=== PATIENT | female | born 1990 | race Two or more races ===

== ENCOUNTER 2017-11-24 13:02 | Emergency (ER) | payer MEDICAID ==
[~2017-11-24] VITALS: Ht 152.4 cm; Wt 68.0 kg
[2017-11-24] MEDS ORDERED: SODIUM CHLORIDE 0.9% 1,000 ML IV ONE (13:56)
[2017-11-24] MEDS ORDERED: KETOROLAC TROMETH 30 MG/ML 1ML VIAL IV ONE (14:00)
[2017-11-24] MEDS ORDERED: METOCLOPRAMIDE HCL 5MG/ml INJ 2ml VIAL IV ONE (14:00)
[2017-11-24 14:52] LABS: Basophils # (auto) 0 uL; Basophils % (auto) 0.2 % (0.0-2.0); Eosinophils # (auto) 0.1 uL; Eosinophils % (auto) 0.8 % (0.0-7.0); Hemoglobin 12.7 g/dL (12.2-16.2); Lymphocytes # (auto) 2.3 uL; Lymphocytes % (auto) 18.4 % (10.0-50.0); Mean Corpuscular Hgb Conc. 33.4 g/dL (32.0-36.0); Mean Corpuscular Volume 86.9 fL (80.0-100.0); Monocytes # (auto) 0.5 uL; Monocytes % (auto) 4.1 % (0.0-12.0); Neutrophils # (auto) 9.6 uL; Neutrophils % (auto) 76.5 % (37.0-80.0); Platelet Count (auto) 333 10^3/uL (140-450); Red Blood Cells 4.37 10^6/uL (4.0-5.20); White Blood Cell 12.6 10^3/uL (4.4-10.8)
[2017-11-24 15:15] LABS: Albumin 3.6 g/dL (3.4-5.0); BUN/Creatinine Ratio 16.9; Bilirubin, Total 0.6 mg/dL (0.2-1.0); Potassium 3.8 mmol/L (3.5-5.1); Total Protein 7.8 g/dL (6.4-8.2)
[2017-11-24 15:40] LABS: Urine Bacteria FEW /hpf (None Seen); Urine Blood Negative /uL (Negative); Urine Mucus FEW (None Seen); Urine Specific Gravity 1.019 (1.001-1.035); Urine WBC 4 /hpf (0 - 5)
[2017-11-24 18:35] VITALS: BP 113/71
== END 2017-11-24 18:42 | disposition home or self-care (01) ==
LOC: ER 13:06
DX: R10.11 Right upper quadrant pain (principal); K76.0 Fatty (change of) liver, not elsewhere classified; Z90.49 Acquired absence of other specified parts of digestive tract
CPT/HCPCS: 36415; 76705; 80053; 81001; 81025; 82150; 83690; 83735; 85025; 96374; 96375; 99285; J1885; J2765; J7030

== ENCOUNTER 2018-04-19 05:29 | Emergency (ER) | payer MEDICAID ==
[~2018-04-19] VITALS: Ht 152.4 cm; Wt 68.0 kg
[2018-04-19 05:39] VITALS: BP 123/72
[2018-04-19] MEDS ORDERED: cefTRIAXone SOD 1,000 MG VL IM ONE (06:45)
== END 2018-04-19 07:55 | disposition home or self-care (01) ==
LOC: ER 05:29
DX: J03.90 Acute tonsillitis, unspecified (principal); Z90.49 Acquired absence of other specified parts of digestive tract
CPT/HCPCS: 96372; 99283; J0696

== ENCOUNTER 2018-06-22 08:46 | Emergency (ER) | payer MEDICAID ==
[~2018-06-22] VITALS: Ht 152.4 cm; Wt 72.6 kg
[2018-06-22 09:20] LABS: Urine Bacteria NONE SEEN /hpf (None Seen); Urine Blood 1+ /uL (Negative); Urine Mucus FEW (None Seen); Urine WBC 1 /hpf (0 - 5)
[2018-06-22 09:23] LABS: Eosinophils # (auto) 0.2 uL; Lymphocytes # (auto) 2.1 uL; Monocytes # (auto) 0.6 uL; Monocytes % (auto) 5.8 % (0.0-12.0)
[2018-06-22 09:25] LABS: Basophils # (auto) 0.1 uL; Basophils % (auto) 0.5 % (0.0-2.0); Eosinophils % (auto) 1.5 % (0.0-7.0); Hematocrit 35.1 % (36.0-46.0); Lymphocytes % (auto) 19.3 % (10.0-50.0); Mean Corpuscular Hemoglobin 22.7 pg (28.0-32.0); Mean Corpuscular Hgb Conc. 31.3 g/dL (32.0-36.0); Mean Corpuscular Volume 72.5 fL (80.0-100.0); Neutrophils % (auto) 72.9 % (37.0-80.0); Nucleated Red Blood Cells % 0.1 %; Platelet Count (auto) 372 10^3/uL (140-450); Red Blood Cells 4.85 10^6/uL (4.0-5.20); Red Cell Distribution Width 17.9 % (11.8-14.3)
[2018-06-22 09:32] LABS: Albumin 3.7 g/dL (3.4-5.0); Calcium 8.8 mg/dL (8.5-10.1); Potassium 3.6 mmol/L (3.5-5.1)
[2018-06-22 09:36] LABS: BUN/Creatinine Ratio 15.6; Bilirubin, Total 0.4 mg/dL (0.2-1.0); Total Protein 7.7 g/dL (6.4-8.2)
[2018-06-22] MEDS ORDERED: SODIUM CHLORIDE 0.9% 1,000 ML IV ONE ×2 (11:34)
[2018-06-22] MEDS ORDERED: TAMSULOSIN HYDROCHLORIDE 0.4 MG CAP PO ONE (11:45)
[2018-06-22] MEDS ORDERED: KETOROLAC TROMETH 30 MG/ML 1ML VIAL IV ONE (11:45)
[2018-06-22 13:13] VITALS: BP 117/73
== END 2018-06-22 14:39 | disposition home or self-care (01) ==
LOC: ER 08:46
DX: N20.0 Calculus of kidney (principal); Z90.49 Acquired absence of other specified parts of digestive tract
CPT/HCPCS: 36415; 74176; 80053; 81001; 85025; 96374; 99284; J1885; J7030

== ENCOUNTER 2019-05-24 19:48 | Emergency (ER) | payer MEDICAID ==
[~2019-05-24] VITALS: Ht 152.4 cm; Wt 76.2 kg
[2019-05-24] MEDS ORDERED: SODIUM CHLORIDE 0.9% 2,000 ML IV ONE (21:00)
[2019-05-24 21:07] LABS: Urine Bacteria NONE SEEN /hpf (None Seen); Urine Blood 1+ /uL (Negative); Urine Specific Gravity 1.018 (1.001-1.035); Urine WBC 1 /hpf (0 - 5)
[2019-05-24 21:12] LABS: Basophils # (auto) 0 10 ^3/uL (0-0.2); Basophils % (auto) 0.5 % (0.0-2.0); Lymphocytes # (auto) 2.2 10 ^3/uL (0.4-5.4)
[2019-05-24 21:14] LABS: Eosinophils # (auto) 0.3 10 ^3/uL (0-0.8); Hemoglobin 10.5 g/dL (12.2-16.2); Lymphocytes % (auto) 33.1 % (10.0-50.0); Mean Corpuscular Hemoglobin 25.7 pg (28.0-32.0); Mean Corpuscular Hgb Conc. 32.8 g/dL (32.0-36.0); Mean Corpuscular Volume 78.5 fL (80.0-100.0); Monocytes # (auto) 0.5 10 ^3/uL (0-1.3); Monocytes % (auto) 8.4 % (0.0-12.0); Neutrophils # (auto) 3.5 10 ^3/uL (1.6-8.6); Platelet Count (auto) 289 10^3/uL (140-450); Red Blood Cells 4.08 10^6/uL (4.0-5.20); Red Cell Distribution Width 15.8 % (11.8-14.3); White Blood Cell 6.5 10^3/uL (4.4-10.8)
[2019-05-24 21:26] LABS: Amylase 39 U/L (25-115); Lipase 83 U/L (73-393)
[2019-05-24 21:28] LABS: Albumin 3.5 g/dL (3.4-5.0); Calcium 8.8 mg/dL (8.5-10.1); Potassium 3.6 mmol/L (3.5-5.1)
[2019-05-24 21:33] LABS: BUN/Creatinine Ratio 19.1; Bilirubin, Total 0.3 mg/dL (0.2-1.0); Total Protein 7.5 g/dL (6.4-8.2)
[2019-05-24] MEDS ORDERED: cefTRIAXone 1GM/50ML D5W 50 ML IV ONE (21:45)
[2019-05-24] MEDS ORDERED: metroNIDAZOLE 500MG/100ML 100 ML IV ONE (21:45)
[2019-05-24 23:43] VITALS: BP 127/82
== END 2019-05-24 23:58 | disposition home or self-care (01) ==
LOC: ER 19:52
DX: K52.9 Noninfective gastroenteritis and colitis, unspecified (principal); N20.0 Calculus of kidney; R59.1 Generalized enlarged lymph nodes; Z90.49 Acquired absence of other specified parts of digestive tract
CPT/HCPCS: 36415; 74176; 80053; 81001; 81025; 82150; 83690; 85025; 96361; 96365; 96367; 99284; J0696; J3490; J7030

== ENCOUNTER 2019-10-31 16:15 | Emergency (ER) | payer MEDICAID ==
[~2019-10-31] VITALS: Ht 154.9 cm; Wt 73.5 kg
[2019-10-31] MEDS ORDERED: KETOROLAC TROMETH 30 MG/ML 1ML VIAL IV ONE (16:30)
[2019-10-31] MEDS ORDERED: SODIUM CHLORIDE 0.9% 1,000 ML IV ONE ×2 (16:30→19:00)
[2019-10-31 17:26] LABS: Basophils # (auto) 0 10 ^3/uL (0-0.2); Eosinophils # (auto) 0.1 10 ^3/uL (0-0.8); Hemoglobin 10.6 g/dL (12.2-16.2); Monocytes # (auto) 0.4 10 ^3/uL (0-1.3)
[2019-10-31 17:27] LABS: Basophils % (auto) 0.4 % (0.0-2.0); Eosinophils % (auto) 1.3 % (0.0-7.0); Lymphocytes # (auto) 1.4 10 ^3/uL (0.4-5.4); Lymphocytes % (auto) 14.2 % (10.0-50.0); Mean Corpuscular Hemoglobin 23.7 pg (28.0-32.0); Mean Corpuscular Hgb Conc. 31.3 g/dL (32.0-36.0); Mean Corpuscular Volume 75.7 fL (80.0-100.0); Monocytes % (auto) 3.8 % (0.0-12.0); Neutrophils % (auto) 80.3 % (37.0-80.0); Platelet Count (auto) 341 10^3/uL (140-450); Red Blood Cells 4.49 10^6/uL (4.0-5.20); Red Cell Distribution Width 16.9 % (11.8-14.3); White Blood Cell 9.9 10^3/uL (4.4-10.8)
[2019-10-31 17:46] LABS: Albumin 3.2 g/dL (3.4-5.0); BUN/Creatinine Ratio 23.2; Calcium 8.1 mg/dL (8.5-10.1); Potassium 3.8 mmol/L (3.5-5.1)
[2019-10-31 17:48] LABS: Bilirubin, Total 0.4 mg/dL (0.2-1.0); Total Protein 7.3 g/dL (6.4-8.2)
[2019-10-31 18:05] LABS: Urine WBC None Seen /hpf (0 - 5)
[2019-10-31 18:20] LABS: Urine Bacteria NONE SEEN /hpf (None Seen); Urine Blood 2+ /uL (Negative); Urine Hyaline Cast FEW /lpf (0 - 2); Urine Mucus FEW (None Seen); Urine Specific Gravity 1.025 (1.001-1.035)
[2019-10-31 18:29] LABS: Alcohol, Urine < 3.0 mg/dL (0-10); Amphetamine Screen, Urine NEGATIVE (NEGATIVE); Barbiturate Scree,Urine NEGATIVE (NEGATIVE); Benzodiazephine Screen, Urine NEGATIVE (NEGATIVE); Cannabinoid Screen, Urine NEGATIVE (NEGATIVE); Cocaine Screen, Urine NEGATIVE (NEGATIVE); Opiate Scree,Urine NEGATIVE (NEGATIVE); Phencyclidine Screen, Urine NEGATIVE (NEGATIVE)
[2019-10-31] MEDS ORDERED: PANTOPRAZOLE 40 MG/10 ML VIAL INJ IV ONE (19:00)
[2019-10-31] MEDS ORDERED: MORPHINE SULF INJ 2 MG/ML SYRINGE 1ML IV ONE (19:00)
[2019-10-31] MEDS ORDERED: ONDANSETRON HCL 4 MG/2 ML VIAL IV ONE (19:00)
[2019-10-31 19:30] VITALS: BP 115/65
[2019-10-31 20:12] LABS: INR 1.05 (0.9-1.15); Partial Thromboplastin Time 24.6 sec (23.0-31.2)
[2019-10-31] MEDS ORDERED: ACETAMINOPHEN/CODEINE#3 (300/30mg) TAB PO ONE (21:00)
== END 2019-10-31 21:28 | disposition home or self-care (01) ==
LOC: ER 16:15
DX: K52.9 Noninfective gastroenteritis and colitis, unspecified (principal); K83.8 Other specified diseases of biliary tract; N20.0 Calculus of kidney; D64.9 Anemia, unspecified; K29.70 Gastritis, unspecified, without bleeding
CPT/HCPCS: 36415; 74176; 76705; 80053; 80307; 81001; 82150; 83690; 84702; 85025; 85610; 85730; 96361; 96374; 96375; 99285; C9113; J1885; J2405; J7030